=== PATIENT | female | born 1995 | race Caucasian/White ===

== ENCOUNTER 2017-06-11 20:40 | Emergency (ER) | payer BC, OTHER ==
[2017-06-11 21:32] LABS: #Eosinphils 0.3 thou/uL (0.0-0.7); #Lymphocytes 2.4 thou/uL (1.20-3.40); #Monocytes 0.9 thou/uL (0.11-0.59); #Neutrophils 6.5 thou/uL (1.40-6.50); %Basophils 0.5 % (0.0-1.0); %Eosinophils 3.4 % (0.0-10.0); %Lymphocytes 23.4 % (28.0-48.0); %Monocytes 8.9 % (0.0-4.0); Mean Platelet Volume 7.4 fL (7.4-10.4); Red Blood Cell (RBC) Count 3.83 mill/uL (4.00-5.20); White Blood Cell (WBC) Count 10.2 thou/uL (4.8-10.8)
[2017-06-11 21:53] LABS: ALT (SGPT) Less than 7 U/L (8-55); AST (SGOT) 12 U/L (5-30); Alkaline Phosphatase 53 U/L (40-150); Anion Gap 10 mmol/L (10-20); BUN (Urea Nitrogen) 6 mg/dL (8.4-21.0); Bilirubin, Total 0.2 mg/dL (0.2-1.2); Calc. Creatinine Clearance 0 mL/min (70-130); Calcium 9.1 mg/dL (7.8-10.44); Carbon Dioxide 26 mmol/L (22-29); Chloride 104 mmol/L (98-107); Estimated GFR-MDRD Greater than 90; Globulin 2.9 g/dL (2.4-3.5); Protein, Total 6.4 g/dL (6.0-8.3)
[2017-06-11] MEDS ORDERED: diphenhydrAMINE 50 MG/ML VIAL ONE (23:06)
[2017-06-11] MEDS ORDERED: Promethazine HCl 25 MG/ML VIAL ONE (23:06)
[2017-06-11 23:12] LABS: Bilirubin Negative (Negative); Blood, Urine Negative (Negative); Glucose, Urine (Dipstick) Negative (Negative); Ketone, Urine Negative (Negative); Nitrite Negative (Negative); Protein, Urine (Dipstick) Negative (Neg-Trace); Urobilinogen 0.2 mg/dL (0.2-1.0)
== END 2017-06-12 00:15 | disposition home or self-care (01) ==
LOC: ERS 20:40
DX: O99.89 Other specified diseases and conditions complicating pregnancy, childbirth and the puerperium (principal); R51 Headache; O99.342 Other mental disorders complicating pregnancy, second trimester; F31.9 Bipolar disorder, unspecified; O99.332 Smoking (tobacco) complicating pregnancy, second trimester; F17.210 Nicotine dependence, cigarettes, uncomplicated; Z79.899 Other long term (current) drug therapy; Z3A.16 16 weeks gestation of pregnancy
CPT/HCPCS: 36415; 80053; 81003; 84702; 85025; 96365; 96375; J1200; J2550

== ENCOUNTER 2017-11-14 09:17 | Inpatient (IN) | payer OTHER ==
[2017-11-14] MEDS ORDERED: Lidocaine 1% (PF) 30 ML VIAL ONE (09:28)
[2017-11-14] MEDS ORDERED: LR / Pitocin 40 units/1000 ml 1,000 ML ONE (09:28)
[2017-11-14] MEDS ORDERED: Oxytocin 10 UNITS/ML VIAL ONE (09:57)
[2017-11-14] MEDS ORDERED: Promethazine HCl 25 MG/ML VIAL IM PRN (10:13)
[2017-11-14] MEDS ORDERED: Preparation H Ointment 28 GM TUBE PR PRN (10:13)
[2017-11-14] MEDS ORDERED: Bisacodyl 10 MG SUPP PR PRN (10:13)
[2017-11-14] MEDS ORDERED: Adacel (T-DAP) 0.5 ML VIAL IM ONE (10:13)
[2017-11-14] MEDS ORDERED: Milk Of Magnesia 30 ML UDCUP PO PRN (10:13)
[2017-11-14] MEDS ORDERED: Ibuprofen 800 MG TAB PO PRN (10:13)
[2017-11-14] MEDS ORDERED: LR / Pitocin 40 units/1000 ml 1,000 ML IV PRN (10:13)
[2017-11-14] MEDS ORDERED: Lidocaine 1% (PF) 30 ML VIAL SC PRN (10:13)
[2017-11-14] MEDS ORDERED: Lanolin Ointment 7 GM TUBE TOP PRN (10:13)
[2017-11-14] MEDS ORDERED: Ondansetron HCl/PF 4 MG/2 ML Vial IVP PRN (10:13)
[2017-11-14] MEDS ORDERED: LR 500 ML/Oxytocin 10 units 500 ML IV SCH (10:15)
[2017-11-14] MEDS ORDERED: LR / Pitocin 40 units/1000 ml 1,000 ML IV SCH (10:15)
[2017-11-14 10:24] LABS: Hemoglobin 13.8 g/dL (12.0-16.0); Mean Corpuscular HGB CONC 34.9 g/dL (32.0-36.0); Mean Corpuscular Hemoglobin 31.4 pg (25.0-35.0); Platelet Count 233 thou/uL (130-400); White Blood Cell (WBC) Count 9.9 thou/uL (4.8-10.8)
--- NOTE | 2017-11-14 10:28 | PDOC.OPDEL ---
OB Operative/Delivery Note Delivery Dr/Surgeon: Adán Edwards Assist: Attending: [place] Pre-Delivery Diagnosis: active labor Procedure/Post Delivery Dx: spontaneous vaginal delivery Weeks gestation: 38 (38.6) Anesthesia: none - Findings A Sex: male - 1 min: 9 - 5 min: 9 - Additional Findings/Plan Placenta delivered: spontaneous Repaired Obstetrical Laceration: 1st degree (hemostatic, bilateral) Estimated blood loss: 400 Compilations/Other Findings: Pre-op Diagnosis: 1. Term intrauterine in labor 2. Bipolar d/o, not medically treated (treated with therapy) 3. Hx of tobacco and meth use (first trimester; second trimester UDS negative). Post-op Diagnosis: 1. Term intrauterine , delivered 2. same as above Indications: A 21 y/o female -->0011 presents in active labor. Delivery Note: This is 21yo F -->0011 @ 38.6wks who delivered a viable M at 0958. Following an uneventful antepartum course, a vigorous (male) was delivered over an intact perineum in the occipitoanterior position. Anterior Shoulder and then remainder of the body delivered. No nuchal cord. The head was held down and mouth and nares were bulb suctioned. Cord clamped and cut and cord blood collected. Placenta delivered intact with a 3 vessel cord noted in the shiny terry position. Fundal massage was performed and the fundus was firm. The cervix and vagina were inspected and found to have two first degree perineal lacerations, hemostatic. Infant went to nursery in good condition for routine care. Apgars were 9/9 at 1 & 5 minutes, respectively. Patient tolerated delivery well and went to after routine recovery/care. Post delivery plan: routine recovery <Pam Ag - Last Filed: 11/14/17 11:28> Attending Addendum - Attending Addendum Date/Time: 11/14/17 1138 I was present throughout and supervised the of a viable male over an intact perineum. Apgars 7/9. Placenta delivered spontaneously and intact. 3V cord. No episiotimy, no lacerations. EBL 400 mL. Infant and mother in stable condition. Residents- [place] <Candie Burrell - Last Filed: 11/14/17 11:40>
[2017-11-14 10:40] VITALS: BMI 29.2
[2017-11-14 11:02] LABS: Syphilis Antibody Nonreactive (Nonreactive); Syphilis Antibody Index 0.05 S/CO (<1.00 Non-Reactive)
[2017-11-14 11:04] LABS: HBSAg Index 0.18 S/CO (0-0.99); Hep B Surf Ag Non-Reactive S/CO (NonReactive)
[2017-11-14] MEDS: Docusate Calcium (SURFAK) 240 MG CAP PO SCH ×2 (11:25→21:19)
[2017-11-14] MEDS: Ferrous Sulfate 325 MG TAB PO SCH (11:26)
[2017-11-14 13:08] LABS: HIV (1/2) Antibody/Antigen Non-Reactive (NonReactive); HIV 1/2 INDEX 0.07 S/CO (<1.00)
[2017-11-14] MEDS: Ibuprofen 800 MG TAB PO SCH ×2 (16:03→19:21)
[2017-11-14] MEDS ORDERED: Docusate Calcium (SURFAK) 240 MG CAP PO SCH (19:30)
[2017-11-14] MEDS ORDERED: Acetaminophen/Codeine 30-300mg Tablet PO PRN (20:58)
[2017-11-14] MEDS ORDERED: Benzocaine/Menthol 20-0.5% 60 ML CAN TOP PRN (21:20)
[2017-11-15] MEDS: Ibuprofen 800 MG TAB PO SCH ×3 (04:50→20:43)
[2017-11-15 06:02] LABS: #Eosinphils 0.2 thou/uL (0.0-0.7); #Lymphocytes 3.1 thou/uL (1.20-3.40); #Neutrophils 9.1 thou/uL (1.40-6.50); %Basophils 0.3 % (0.0-1.0); %Eosinophils 1.5 % (0.0-10.0); %Lymphocytes 22.8 % (28.0-48.0); %Monocytes 7.5 % (0.0-4.0); %Neutrophils 67.9 % (31.0-61.0); Hemoglobin 10.8 g/dL (12.0-16.0); Mean Corpuscular HGB CONC 33.3 g/dL (32.0-36.0); Mean Corpuscular Hemoglobin 30.4 pg (25.0-35.0); Mean Corpuscular Volume 91.4 fl (77.0-87.0); Mean Platelet Volume 8.1 fL (7.4-10.4); Platelet Count 231 thou/uL (130-400); RBC Distribution Width 10.9 % (11.5-14.5); Red Blood Cell (RBC) Count 3.56 mill/uL (4.00-5.20); White Blood Cell (WBC) Count 13.4 thou/uL (4.8-10.8)
[2017-11-15] MEDS: Ferrous Sulfate 325 MG TAB PO SCH ×2 (07:53→18:23)
--- NOTE | 2017-11-15 08:20 | PDOC.PP ---
Post Progress Note Post Day #: 1 Subjective: No acute events overnight. Pt is ambulating, tolerating a normal diet, passing flatus, minimal lochia, and pain controlled. PO intake tolerated: yes Flatus: yes Ambulation: yes Vital Signs (12 hours) Temp Pulse Resp BP BP 11/15/17 08:00 98.0 F 72 20 108/64 11/15/17 04:00 98.2 F 77 20 121/62 11/15/17 00:00 97.7 F 72 18 115/70 Weight Weight 74.843 kg - Physical Examination General: NAD Cardiovascular: no m/r/g, RRR Respiratory: clear to auscultation bilaterally, non-labored breathing Abdominal: lochia (minimal), appropriately TTP Fundus firm & at: at umbilicus Skin: no rash Neurological: no gross focal deficits Psychiatric: A&Ox3, normal affect Result Diagrams: 11/15/17 05:16 Additional Labs: Post Labs Blood Type O POSITIVE 11/14/17 09:15 Hep Bs Antigen Non-Reactive S/CO (NonReactive) 11/14/17 09:15 (1) Term delivered Code(s): O80 - ENCOUNTER FOR FULL-TERM UNCOMPLICATED DELIVERY Status: Acute (2) History of tobacco use Code(s): Z87.891 - PERSONAL HISTORY OF NICOTINE DEPENDENCE Status: Acute (3) History of methamphetamine use Code(s): Z87.898 - PERSONAL HISTORY OF OTHER SPECIFIED CONDITIONS Status: Acute (4) Bipolar disorder in remission Code(s): F31.70 - BIPOLAR DISORD, CURRENTLY IN REMIS, MOST RECENT EPISODE [facility] Status: Acute - Assessment/Plan 21 yo -->P0011 who presented in active labor, now s/p yesterday (11/14 ) @ 0958, without complications. 1.)Term , delivered-Doing well this am. Ambulating, passing flatus, lochia is minimal, pain controlled, tolerating normal diet. Plan for discharge tomorrow once 48 hours post delivery. 2.)Hx of tobacco and meth us in first trimester: 2nd trimester UDS negative. 3.)Bipolar d/o: controlled with therapy, no medical management at this time. <Pam Ag - Last Filed: 11/15/17 10:07> Vital Signs (12 hours) Temp Pulse Resp BP BP 11/15/17 08:00 98.0 F 72 20 108/64 11/15/17 04:00 98.2 F 77 20 121/62 11/15/17 00:00 97.7 F 72 18 115/70 Weight Weight 74.843 kg Result Diagrams: 11/15/17 05:16 Additional Labs: Post Labs Blood Type O POSITIVE 11/14/17 09:15 Hep Bs Antigen Non-Reactive S/CO (NonReactive) 11/14/17 09:15 <Candie Burrell - Last Filed: 11/15/17 10:17> Attending Addendum - Attending Addendum Date/Time: 11/15/17 1016 I personally evaluated the patient and discussed the management with Dr. Edwards I agree with the History, Examination, Assessment and Plan documented above with any addition or exceptions noted below- Patient without complaints. Ambulating/voiding minimal lochia and pain. Afebrile VSS A/P: 1) PPD#1 s/p - Continue routine care. PLan to d/c home in AM. <Candie Burrell - Last Filed: 11/15/17 10:17>
[2017-11-15] MEDS ORDERED: Prenatal Vitamin 1 TAB PO SCH (09:00)
[2017-11-15] MEDS: Prenatal Vitamin 1 TAB PO SCH (09:39)
[2017-11-15] MEDS: Docusate Calcium (SURFAK) 240 MG CAP PO SCH ×2 (09:40→20:43)
[2017-11-15] MEDS ORDERED: diphenhydrAMINE 25 MG CAP PO SCH (15:00)
[2017-11-16] MEDS: Ibuprofen 800 MG TAB PO SCH ×2 (05:53→09:17)
[2017-11-16 08:26] VITALS: BP 113/58; TEMP 99
[2017-11-16] MEDS: Ferrous Sulfate 325 MG TAB PO SCH (09:13)
[2017-11-16] MEDS: Prenatal Vitamin 1 TAB PO SCH (09:14)
[2017-11-16] MEDS: Docusate Calcium (SURFAK) 240 MG CAP PO SCH (09:14)
--- NOTE | 2017-11-16 11:56 | PDOC.PP ---
Post Progress Note Post Day #: 2 Subjective: No acute events overnight. Pt is ambulating, tolerating a normal diet, passing flatus, minimal lochia, and pain controlled. PO intake tolerated: yes Flatus: yes Ambulation: yes Vital Signs (12 hours) Temp Pulse Resp BP 11/16/17 08:25 99.0 F 79 18 113/58 L 11/16/17 08:00 99.0 F 79 18 Weight Weight 74.843 kg - Physical Examination General: NAD Cardiovascular: no m/r/g, RRR Respiratory: clear to auscultation bilaterally Abdominal: + bowel sounds, lochia, no distention, appropriately TTP Fundus firm & at: u -3 Extremities: negative homans (B) Neurological: no gross focal deficits Psychiatric: A&Ox3, normal affect Result Diagrams: 11/15/17 05:16 Additional Labs: Post Labs Blood Type O POSITIVE 11/14/17 09:15 Hep Bs Antigen Non-Reactive S/CO (NonReactive) 11/14/17 09:15 (1) Bipolar disorder in remission Code(s): F31.70 - BIPOLAR DISORD, CURRENTLY IN REMIS, MOST RECENT EPISODE [facility] Status: Acute (2) History of methamphetamine use Code(s): Z87.898 - PERSONAL HISTORY OF OTHER SPECIFIED CONDITIONS Status: Acute (3) History of tobacco use Code(s): Z87.891 - PERSONAL HISTORY OF NICOTINE DEPENDENCE Status: Acute (4) Term delivered Code(s): O80 - ENCOUNTER FOR FULL-TERM UNCOMPLICATED DELIVERY Status: Acute - Assessment/Plan 21 yo -->P0011 who presented in active labor, now s/p on 11/14 @ 0958 , without complications. Term , delivered -Doing well this am. No problems. Ready to dc today Hx of tobacco and meth us in first trimester 2T UDS negative, stopped smoking in 2T as well Bipolar d/o controlled with therapy, no medical management at this time. Dispo ready for dc today, fu in 2 weeks <Harish Dickinson - Last Filed: 11/16/17 11:53> Vital Signs (12 hours) Temp Pulse Resp BP 11/16/17 08:25 99.0 F 79 18 113/58 L 11/16/17 08:00 99.0 F 79 18 Weight Weight 74.843 kg Result Diagrams: 11/15/17 05:16 Additional Labs: Post Labs Blood Type O POSITIVE 11/14/17 09:15 Hep Bs Antigen Non-Reactive S/CO (NonReactive) 11/14/17 09:15 <Candie Burrell - Last Filed: 11/16/17 15:00> Attending Addendum - Attending Addendum Date/Time: 11/16/17 3048 I personally evaluated the patient and discussed the management with Dr. Dickinson I agree with the History, Examination, Assessment and Plan documented above with any addition or exceptions noted below- Patient without complaints. Ambulating/voiding. Afebrile VSS. A/P: 1) PPD#2 s/p - plan to d/c home today. Follow-up in 6 weeks for visit. <Candie Burrell - Last Filed: 11/16/17 15:00>
== END 2017-11-16 13:45 | disposition home or self-care (01) | DRG 775 ==
LOC: L&D/OP 09:17 → L&D 09:36 → 3SW 12:45
PROVIDERS: ADMIT Family Medicine; ATTEND Family Medicine
PROC: 10E0XZZ Delivery of Products of Conception, External Approach (ICD-10-PCS; principal; 2017-11-14)
PROC: 10907ZC Drainage of Amniotic Fluid, Therapeutic from Products of Conception, Via Natural or Artificial Opening (ICD-10-PCS; 2017-11-14)
DX: F31.70 Bipolar disorder, currently in remission, most recent episode unspecified; O80 Encounter for full-term uncomplicated delivery; Z87.898 Personal history of other specified conditions; Z37.0 Single live birth; Z3A.38 38 weeks gestation of pregnancy; Z87.891 Personal history of nicotine dependence
CPT/HCPCS: 36415; 85025; 85027; 86780; 87340; 87389; 99285; J2001; J2590

== ENCOUNTER 2024-01-28 13:55 | Emergency (ER) | payer OTHER ==
[2024-01-28] MEDS ORDERED: Ondansetron PF 4 MG/2 ML Vial ONE (14:12)
[2024-01-28 14:32] LABS: #Basophils Less than 0.03 10x3/uL (0.0-0.2); #Eosinphils Less than 0.03 10x3/uL (0.0-0.7); %Basophils 0.2 % (0.0-1.0); %Eosinophils 0.2 % (0.0-10.0); %Lymphocytes 2.1 % (21.0-51.0); %Monocytes 4.9 % (0.0-10.0); %Neutrophils 92.3 % (42.0-75.0); Hematocrit 40.3 % (36.0-47.0); Hemoglobin 13.8 g/dL (12.0-16.0); Mean Corpuscular HGB CONC 34.2 g/dL (32.0-36.0); Mean Corpuscular Hemoglobin 30.8 pg (27.0-31.0); Mean Platelet Volume 10.2 fL (7.4-10.4); Platelet Count 227 10x3/uL (130-400); RBC Distribution Width 11.9 % (11.5-14.5); Red Blood Cell (RBC) Count 4.48 mill/uL (4.20-5.40)
[2024-01-28 14:45] LABS: BHCG - Serum Negative (NEGATIVE); Pregs Control Background? CLEAR/WHITE (CLR/WHITE); Pregs Control Bar Appear? YES (CONTROL BAR)
[2024-01-28 14:51] LABS: ALT (SGPT) 7 U/L (8-55); AST (SGOT) 15 U/L (5-34); Albumin 3.8 g/dL (3.5-5.0); Alkaline Phosphatase 43 U/L (40-110); Anion Gap 17 mmol/L (10-20); BUN (Urea Nitrogen) 16 mg/dL (7.0-18.7); Bilirubin, Total 0.9 mg/dL (0.2-1.2); Calc. Creatinine Clearance 0 mL/min (70-130); Calcium 8.5 mg/dL (7.8-10.44); Carbon Dioxide 19 mmol/L (22-29); Chloride 103 mmol/L (98-107); Estimated GFR 104; Glucose 122 mg/dL (70-105); Lipase 13 U/L (8-78); Potassium 4.1 mmol/L (3.5-5.1); Protein, Total 6.8 g/dL (6.0-8.3); Sodium 135 mmol/L (136-145)
== END 2024-01-28 16:12 | disposition home or self-care (01) ==
LOC: ERS 13:55
DX: R19.7 Diarrhea, unspecified (principal); R11.2 Nausea with vomiting, unspecified; F17.290 Nicotine dependence, other tobacco product, uncomplicated; F43.10 Post-traumatic stress disorder, unspecified; F90.9 Attention-deficit hyperactivity disorder, unspecified type; F17.210 Nicotine dependence, cigarettes, uncomplicated; Z55.6 Problems related to health literacy
CPT/HCPCS: 80053; 83690; 84703; 85025; 96361; 96374; J2405

== ENCOUNTER 2025-05-11 10:53 | Emergency (ER) | payer OTHER ==
[2025-05-11 11:23] LABS: #Basophils Less than 0.03 10x3/uL (0.0-0.2); #Eosinophils 0.26 10x3/uL (0.0-0.7); #Monocytes 0.68 10x3/uL (0.11-0.59); #Neutrophils 5.49 10x3/uL (1.40-6.50); %Basophils 0.3 % (0.0-1.0); %Eosinophils 3.4 % (0.0-10.0); %Lymphocytes 15.2 % (21.0-51.0); %Monocytes 8.9 % (0.0-10.0); %Neutrophils 71.8 % (42.0-75.0); Hematocrit 38.8 % (36.0-47.0); Hemoglobin 12.9 g/dL (12.0-16.0); Mean Corpuscular Hemoglobin 30.6 pg (27.0-31.0); Mean Corpuscular Volume 92.2 fL (78.0-98.0); Platelet Count 218 10x3/uL (130-400); Red Blood Cell (RBC) Count 4.21 mill/uL (4.20-5.40); White Blood Cell (WBC) Count 7.64 10x3/uL (4.8-10.8)
[2025-05-11] MEDS ORDERED: Ondansetron PF 4 MG/2 ML Vial ONE (11:40)
[2025-05-11 11:45] LABS: ALT (SGPT) 9 U/L (Less than 34); AST (SGOT) 24 U/L (11-34); Albumin 4.3 g/dL (3.1-4.5); Alkaline Phosphatase 53 U/L (40-110); Anion Gap 13 mmol/L (10-20); BUN (Urea Nitrogen) 9 mg/dL (7.0-18.7); Bilirubin, Total 0.5 mg/dL (0.3-1.2); Calc. Creatinine Clearance 0 mL/min (70-130); Calcium 9.0 mg/dL (7.8-10.44); Carbon Dioxide 27 mmol/L (22-29); Chloride 103 mmol/L (98-107); Globulin 2.8 g/dL (2.4-3.5); Glucose 90 mg/dL (70-105); Lipase 19 U/L (8-78); Potassium 3.8 mmol/L (3.5-5.1); Sodium 139 mmol/L (136-145)
[2025-05-11 13:23] LABS: BHCG - Serum Negative (NEGATIVE); Pregs Control Background? CLEAR/WHITE (CLR/WHITE); Pregs Control Bar Appear? YES (CONTROL BAR)
[2025-05-11] MEDS ORDERED: Iopamidol-370 76% 500 ML MDV (1 ML CHARGE) ONE (13:31)
[2025-05-11 14:32] LABS: Bacteria/HPF None Seen HPF (None Seen); CAUTI Indications for Culture Pelvic or flank pain; Glucose, Urine (Dipstick) Normal (Negative); Leukocyte Negative Leu/uL (Negative); Protein, Urine (Dipstick) Negative (Neg-Trace); RBC/HPF None Seen HPF (0-3); Specific Gravity, Urine 1.018 (1.002-1.036); WBC/HPF 0-3 HPF (0-3)
[2025-05-11 14:40] LABS: Urine Culture Reflex No No
== END 2025-05-11 15:41 | disposition home or self-care (01) ==
LOC: ERS 10:53
DX: R10.9 Unspecified abdominal pain (principal)
CPT/HCPCS: 36415; 74177; 76705; 80053; 81001; 83690; 84703; 85025; 96361; 96374; 96375; Q9967